=== PATIENT | male | born 1975 | race African-American/Black ===

== ENCOUNTER 2023-04-11 11:46 | Emergency (ER) | payer SELFPAY ==
[~2023-04-11 11:46] MED LIST: Iopamidol-370 76% 500 ML MDV (1 ML CHARGE) ONE
[2023-04-11] MEDS ORDERED: Aspirin Chewable 81 MG TAB ONE (12:15)
[2023-04-11] MEDS ORDERED: Acetaminophen 500 MG TAB ONE (12:15)
[2023-04-11 12:43] LABS: #Eosinphils 0.6 thou/uL (0.0-0.7); #Monocytes 0.5 thou/uL (0.11-0.59); #Neutrophils 7.2 thou/uL (1.40-6.50); %Basophils 0.3 % (0.0-1.0); %Eosinophils 5.6 % (0.0-10.0); %Lymphocytes 18.7 % (21.0-51.0); %Monocytes 5.2 % (0.0-10.0); %Neutrophils 69.9 % (42.0-75.0); Hematocrit 45.3 % (42.0-52.0); Hemoglobin 15.4 g/dL (14.0-18.0); Mean Corpuscular Hemoglobin 30.4 pg (27.0-31.0); Mean Corpuscular Volume 89.3 fl (78.0-98.0); Mean Platelet Volume 10.2 fL (7.4-10.4); Platelet Count 329 10x3/uL (130-400); RBC Distribution Width 12.6 % (11.5-14.5); Red Blood Cell (RBC) Count 5.07 mill/uL (4.70-6.10); White Blood Cell (WBC) Count 10.3 10x3/uL (4.8-10.8)
[2023-04-11 13:10] LABS: Troponin I Less than 0.010 ng/mL (< 0.028)
[2023-04-11 17:18] LABS: Albumin 3.8 g/dL (3.5-5.0)
[2023-04-11 17:20] LABS: Calcium 9.1 mg/dL (7.8-10.44); Chloride 104 mmol/L (98-107); Sodium 136 mmol/L (136-145)
[2023-04-11 17:21] LABS: Globulin 2.9 g/dL (2.4-3.5); Glucose 102 mg/dL (70-105); Protein, Total 6.7 g/dL (6.0-8.3)
[2023-04-11 17:23] LABS: Anion Gap 13 mmol/L (10-20); Bilirubin, Total 0.5 mg/dL (0.2-1.2); Carbon Dioxide 23 mmol/L (22-29)
[2023-04-11 17:24] LABS: Alkaline Phosphatase 47 U/L (40-110); Calc. Creatinine Clearance 0 mL/min (70-130); Estimated GFR 100
[2023-04-11 17:25] LABS: BUN (Urea Nitrogen) 9 mg/dL (8.9-20.6)
[2023-04-11 17:26] LABS: AST (SGOT) 12 U/L (5-34)
[2023-04-11 17:27] LABS: ALT (SGPT) 17 U/L (8-55); Lipase 22 U/L (8-78)
== END 2023-04-11 17:40 | disposition home or self-care (01) ==
LOC: ERS 11:46
DX: R60.9 Edema, unspecified (principal); R07.9 Chest pain, unspecified; I10 Essential (primary) hypertension; F17.210 Nicotine dependence, cigarettes, uncomplicated
CPT/HCPCS: 36415; 71045; 71275; 80053; 83690; 83880; 84484; 85025; 85379; 93005; 93970; 94760; Q9967